=== PATIENT | male | born 1985 | race Caucasian/White ===

== ENCOUNTER → 2019-10-05 | Emergency (ER) | payer OTHER ==
[~2019-10-05] VITALS: Ht 185.4 cm; Wt 108.9 kg
[~2019-10-05] MED LIST: DUI500 PO; NAPROXEN SODIU550 MG PO; TRUVADA 200 MG1 EACH
== END | disposition home or self-care (01) ==
LOC: ER 22:53
DX: S91.342A Puncture wound with foreign body, left foot, initial encounter (principal); T63.691A Toxic effect of contact with other venomous marine animals, accidental (unintentional), initial encounter; Y92.832 Beach as the place of occurrence of the external cause; Y93.01 Activity, walking, marching and hiking; Y99.8 Other external cause status